=== PATIENT | female | born 1990 | race Caucasian/White ===

== ENCOUNTER 2020-11-21 09:32 | Emergency (ER) | payer SELFPAY ==
[~2020-11-21] VITALS: Ht 152.4 cm; Wt 56.4 kg
[2020-11-21 09:40] VITALS: BP 106/74
[2020-11-21] MEDS ORDERED: PRED50TA PO (09:58)
--- NOTE | 2020-11-21 09:59 | PHYS DOC ---
Past History Past Medical History: No Pertinent History Past Surgical History: Tubal ligation, Other Additional Past Surgical Histo: facial surgery, Alcohol Use: None General Adult EDM: Chief Complaint: HAND PROBLEM HPI: HPI: 30-year-old female presents with right wrist pain and hand numbness. 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 She tells me that she has had a throbbing type pain for the last 3 days and it is just not going away. She is not sure what else to try. She has tried [id number] treatments. She further reports numbness and tingling at night. Sometimes it is hard to fall asleep. She is also noticed that this hand seems a bit weaker than the other hand. She denies fever or chills. Review of Systems: Review of Systems: Constitutional: Denies fever or chills Eyes: Denies change in visual acuity HENT: Denies nasal congestion or sore throat Respiratory: Denies cough or shortness of breath Cardiovascular: Denies chest pain or edema GI: Denies abdominal pain, nausea, vomiting, bloody stools or diarrhea : Denies dysuria Musculoskeletal: Right wrist pain Integument: Denies rash Neurologic: Denies headache, focal weakness or sensory changes Endocrine: Denies polyuria or polydipsia Lymphatic: Denies swollen glands Psychiatric: Denies depression or anxiety Allergies: Allergies: Allergies Coded Allergies Type Severity Reaction Last Updated Verified No Known Drug Allergies 11/21/20 No Physical Exam: PE: Constitutional: Well developed, well nourished, no acute distress, non-toxic appearance. [] HENT: Normocephalic, atraumatic, bilateral external ears normal, oropharynx mois t, no oral exudates, nose normal. [] Eyes: PERRLA, EOMI, conjunctiva normal, no discharge. [] Neck: Normal range of motion, no tenderness, supple, no stridor. [] Cardiovascular: Heart rate regular rhythm, no murmur [] Lungs & Thorax: Bilateral breath sounds clear to auscultation [] Abdomen: Bowel sounds normal, soft, no tenderness, no masses, no pulsatile masses. [] Skin: Warm, dry, no erythema, no rash. [] Back: No tenderness, no CVA tenderness. [] Extremities: Positive Tinel's sign in the right wrist, no obvious swelling or deformity. [] Neurologic: Alert and oriented X 3, normal motor function, normal sensory function, no focal deficits noted. [] Psychologic: Affect normal, judgement normal, mood normal. [] Current Patient Data: Vital Signs: Vital Signs Date Time Temp Pulse Resp B/P (MAP) Pulse Ox O2 Delivery O2 Flow Rate FiO2 11/21/20 09:40 98.3 90 18 106/74 (85) 97 Room Air EKG: EKG: [] Radiology/Procedures: Radiology/Procedures: [] Heart Score: C/O Chest Pain: N/A Risk Factors: Risk Factors: DM, Current or recent (<one month) smoker, HTN, HLP, family history of CAD, obesity. Risk Scores: Score 0 - 3: 2.5% MACE over next 6 weeks - Discharge Home Score 4 - 6: 20.3% MACE over next 6 weeks - Admit for Clinical Observation Score 7 - 10: 72.7% MACE over next 6 weeks - Early Invasive Strategies Course & Med Decision Making: Course & Med Decision Making Pertinent Labs and Imaging studies reviewed. (See chart for details) Based on my exam and the history, the patient appears to have carpal tunnel syndrome of the right wrist. I have advised that she wear carpal tunnel splints. I will also treat her with a short course of prednisone. We will give the first dose in the ED. She is stable for discharge at this time. [] Bharathon Disclaimer: Jaya Disclaimer: This electronic medical record was generated, in whole or in part, using a voice recognition dictation system. Departure Departure: Impression: Primary Impression: Carpal tunnel syndrome, right Referrals: PCP,JEREMIE (PCP) Patient Instructions: Carpal Tunnel Syndrome, [id number] Scripts Prednisone (PREDNISONE) 50 Mg Tablet 1 TAB PO DAILY for carpal tunnel for 3 Days, #3 TAB Prov: KELSEY PETERSON DO 11/21/20 KELSEY PETERSON DO Nov 21, 2020 09:59
[2020-11-21] MEDS ORDERED: predniSONE 10 MG TABLET PO ONE (10:00)
== END 2020-11-21 10:09 | disposition home or self-care (01) ==
LOC: ER 09:32
DX: G56.01 Carpal tunnel syndrome, right upper limb (principal)
CPT/HCPCS: 99283; J7512